=== PATIENT | female | born 1945 | race Caucasian/White ===

== ENCOUNTER 2019-06-09 07:13 | Emergency (ER) | payer OTHER ==
[2019-06-09 07:30] VITALS: BMI 27.3
--- NOTE | 2019-06-09 07:47 | PDOC ---
History of Present Illness - General Chief Complaint: Injury Stated Complaint: FALL Time Seen by Provider: 06/09/19 07:26 History Source: Family Exam Limitations: Dementia - History of Present Illness Initial Comments: 06/09/19 10:17 73F PMH Alzheimers and hypothyroidism brought in after a witnessed trip and fall w/ head strike w/o LOC. Not on AC. Pt got out of bed w/ assistance of (currently at bedside) and lost her footing while she was turning. Fell from standing, landed on buttock then struck head against dresser. Ambulated after incident. Family states pt is at baseline mental status. Pt denies pain. There was no recent illness. Pt is unreliable and poor historian 2/2 dementia. Sulfa abx allergy PCP on file Past History - Past Medical History Allergies/Adverse Reactions: Allergies Allergy/AdvReac Type Severity Reaction Status Date / Time Sulfa (Sulfonamide Allergy Verified 06/09/19 07:30 Antibiotics) Home Medications: Ambulatory Orders NK [No Known Home Medication] 11/06/14 COPD: No Dementia: Yes (alz.) Thyroid Disease: Yes - Psycho Social/Smoking Cessation Hx Smoking History: Never smoked Have you smoked in the past 12 months: No Information on smoking cessation initiated: No Hx Alcohol Use: No Drug/Substance Use Hx: No Substance Use Type: None Review of Systems - Review of Systems Able to Perform ROS?: No Comments:: 06/09/19 10:17 Unable to reliably obtain ROS 2/2 dementia *Physical Exam - Vital Signs Last Vital Signs Temp Pulse Resp BP Pulse Ox 91 H 19 175/130 H 100 06/09/19 07:28 06/09/19 07:28 06/09/19 07:28 06/09/19 07:28 - Physical Exam 06/09/19 10:17 GEN: NAD, Awake and alert, dementia HEENT: Hematoma to the right occipital aspect of the scalp. No active bleeding. No raccoon eyes or daniel sign. Pt minimally cooperative w/ CN exam. EOMI, PERRLA. No facial asymmetry. Moist mucous membranes. Normal voice. Supple neck w / FROM; no midline TTP. CV: S1/S2, RRR, no m/r/g LUNG: CTAB, no wheezes, crackles, rales, rhonchi. GI: soft, ndnt, +BS, no guarding, no rebound. No masses. EXTREMITIES: No LE edema. No obvious deformities of all extremities. SKIN: warm, dry, normal turgor. No ecchymoses on exam. PSYCH: normal mood and affect, dementia, pleasant NEURO: Moving all extremities well. FROM UE and LE b/l. Neurologic exam limited 2/2 pt dementia. Ambulates w/ assistance (baseline) BACK: No obvious deformities, no step offs, no midline TTP. There is no pelvic instability. No signs of trauma. Procedures - Laceration/Wound Repair Right Posterior Head Wound Length: to 2.5 cm Wound Explored: no foreign body present Wound's Depth, Shape: superficial Irrigated w/ Saline: Yes Betadine Prep: No Anesthesia: 1% Lidocaine w/ Epi Wound Debrided: minimal Wound Repaired With: [place] (5 ellyn) Layer Closure: No Sterile Dressing Applied: No Splint Applied: No Progress: 06/09/19 09:58 Wound area was washed revealing 1 - 1.5cm linear laceration of the right occipital scalp w/o active bleeding. 1.5cc lidocaine (1% w/ epi) was used for local anesthesia 5 ellyn were placed with good approximation and hemostasis. No active bleeding. the patient tolerated the patient well. Medical Decision Making - Medical Decision Making 06/09/19 07:52 73F not on AC s/p witnessed trip and fall w/ head strike w/o LOC. Severe dementia at baseline but family at bedside states at baseline. Hematoma of right occipital scalp. No midline TTP. - CT head and c-spine - Boostrix - Wash out affected area, see if there is lac repair? 06/09/19 10:00 CT head and neck neg laceration repaired w/ 5 ellyn Pt dc home w/ pcp f/u and staple care instructions Discharge - Discharge Information Problems reviewed: Yes Clinical Impression/Diagnosis: Laceration of head Qualifiers: Encounter type: initial encounter Location of open wound of head: scalp Foreign body presence: without foreign body Qualified Code(s): S01.01XA - Laceration without foreign body of scalp, initial encounter Condition: Stable Disposition: HOME - Admission No - Follow up/Referral Referrals: Salima Barajas MD [Primary Care Provider] - - Patient Discharge Instructions Patient Printed Discharge Instructions: DI for Laceration Repair -- Ellyn, DI for Closed Head Injury Additional Instructions: Follow up with your primary care doctor in the next 10-14 days. Five ellyn were placed, these can be removed in 10 days either at your primary care office or the Emergency Department. Keep the area dry for 24-48 hours. After that period you can wash the area with water and soap but AVOID scrubbing. Slowly resume normal, non-strenuous activity as tolerated. You can take tylenol as directed by the label for pain. A copy of your imaging reports was provided to you. You received a tetanus booster shot. Immediately return to the Emergency Department if you experience any of the following: - acute change in baseline behavior or personality - development of fevers / chills - anything that concerns you - Post Discharge Activity
[2019-06-09] MEDS ORDERED: DIPHTH,PERTUSS(ACELL),TET 0.5 ML DISP.SYRIN IM ONE ×2 (07:57→08:02)
[2019-06-09] MEDS ORDERED: LIDOCAINE 1%/EPI 1:100000 (20 ML MULTI DOSE VIAL) INF ONE (09:04)
[2019-06-09] MEDS ORDERED: LIDOCAINE 1%/EPI 1:100000 (20 ML MULTI DOSE VIAL) ONE (09:12)
[2019-06-09 09:58] VITALS: BP 116/71; PULSE 85
--- NOTE | 2019-06-09 10:04 | PDOC ---
Documentation entered by Jyoti Garcia SCRIBE, acting as scribe for Lincoln Reina MD. Lincoln Reina MD: This documentation has been prepared by the hugoibe, Jyoti Garcia SCRIBE, under my direction and personally reviewed by me in its entirety. I confirm that the documentation accurately reflects all work, treatment, procedures, and medical decision making performed by me. Attending Attestation - Resident Resident Name: PrestonRon - ED Attending Attestation I have performed the following: I have examined & evaluated the patient, The case was reviewed & discussed with the resident, I agree w/resident's findings & plan, Exceptions are as noted - HPI HPI: 06/09/19 08:09 The patient is a 73-year-old female with a past medical history significant for Alzheimers (requires 24 hour care, oriented x 0 at baseline) and hypothyroidism who presents to the emergency department accompanied by her s/p a witnessed fall. Patient's witnessed the fall, he was helping the patient ambulate out of the bed when she lost balance while turning. The patients states their legs got twisted and he was unable to stop her from hitting the ground. The patient fell onto her buttocks, then fell backward, hitting her head on the dresser, then the floor. The patient typically is helped out of bed by one of her HAND SCRAPER's but she is off today for the holiday. Denies LOC, nausea, or vomiting. The patient was able to ambulate after the fall. Denies AC use. Allergies: Sulfa Social history: No reported use of tobacco, alcohol or recreational drugs. PCP: Dr. Lilli Barajas. - Physicial Exam PE: 06/09/19 09:49 GENERAL: Pt is alert, not oriented x3. Pt keeps repeating is Wiley ok in no acute distress. Pt's and son Wiley at bedside. HEAD: +1cm vertical linear laceration to the right posterior head, hemostatic with 5 ellyn. EYES: PERRLA, EOMI, sclera anicteric, conjunctiva clear ENT: Auricles normal inspection, hearing grossly normal, nares patent, oropharynx clear without exudates. Moist mucosa NECK: Normal ROM, supple, no lymphadenopathy, JVD, or masses LUNGS: Breath sounds equal, clear to auscultation bilaterally. No wheezes, and no crackles HEART: Regular rate and rhythm, normal S1 and S2, no murmurs, rubs or gallops ABDOMEN: Soft, nontender, normoactive bowel sounds. No guarding, no rebound. No masses EXTREMITIES: Normal range of motion, no edema. No clubbing or cyanosis. No cords , erythema, or tenderness. 2+ peripheral pulses. WWP. BACK: No midline spinal tenderness in cervical/thoracic/lumbar region NEUROLOGICAL: Normal speech, cranial nerves intact, equal strength b/l, able to gait in ED with minimal assistance. SKIN: Warm, Dry, normal turgor, no rashes or lesions noted. - Medical Decision Making 06/09/19 10:00 73-year-old female presents emergency department for evaluation after a mechanical fall while getting out of bed. Patient with linear laceration to posterior right scalp which has been repaired with [address] head and cervical spine negative for acute injury. Initial labs with elevated blood pressure, however on repeat without intervention, blood pressure has normalized. Remaining vitals unremarkable. Patient with no other evidence of trauma on exam. She is able to ambulate in the ED with her family. She is clinically stable for discharge home. I discussed the physical exam findings, ancillary test results and final diagnoses with the patient. I answered all of the patient's questions. The patient was satisfied with the care received and felt comfortable with the discharge plan and treatment plan. The patient will call their primary care physician within 24 hours to arrange follow-up and will return to the Emergency Department with any new, persistent or worsening symptoms.
== END 2019-06-09 09:59 | disposition home or self-care (01) ==
LOC: JER 07:13
PROC: 3E0234Z Introduction of Serum, Toxoid and Vaccine into Muscle, Percutaneous Approach (ICD-10-PCS; principal; 2019-06-09)
PROC: 0HQ0XZZ Repair Scalp Skin, External Approach (ICD-10-PCS; 2019-06-09)
DX: S01.01XA Laceration without foreign body of scalp, initial encounter (principal); W01.190A Fall on same level from slipping, tripping and stumbling with subsequent striking against furniture, initial encounter; Y93.89 Activity, other specified; Y92.013 Bedroom of single-family (private) house as the place of occurrence of the external cause; Y99.8 Other external cause status; E03.9 Hypothyroidism, unspecified; G30.9 Alzheimer's disease, unspecified; F02.80 Dementia in other diseases classified elsewhere, unspecified severity, without behavioral disturbance, psychotic disturbance, mood disturbance, and anxiety; Z88.2 Allergy status to sulfonamides
CPT/HCPCS: 70450-TC; 72125-TC; 90715; 99281-25

== ENCOUNTER 2022-05-12 15:59 | Inpatient (IN) | payer OTHER ==
[2022-05-12 16:05] VITALS: BMI 26.6
[2022-05-12 17:54] LABS: VENOUS BASE EXCESS -1.3 mmol/L (-2-2); VENOUS O2 SATURATION 22.1 % (70-80); VENOUS PCO2 56.4 mmHg (38-52); VENOUS PH 7.288 (7.310-7.410)
[2022-05-12] MEDS ORDERED: SODIUM CHLORIDE 0.9% 500 ML INFUS.BAG IV ONE (17:59)
[2022-05-12] MEDS ORDERED: ACETAMINOPHEN 1000 MG/100 ML BAG IVPB ONE (17:59)
[2022-05-12] MEDS ORDERED: CEFTRIAXONE 1,000 MG in DEXTROSE 5%-WATER - 50 ML IVPB ONE (18:00)
[2022-05-12] MEDS ORDERED: AZITHROMYCIN IVPB 500 MG in DEXTROSE 5%-WATER - 250 ML IVPB ONE (18:00)
[2022-05-12 18:08] LABS: LACTIC ACID 2.2 mmol/L (0.4-2.0)
[2022-05-12] MEDS ORDERED: ACETAMINOPHEN INJECTION 100 ML IVPB ONE (18:09)
[2022-05-12] MEDS ORDERED: CEFTRIAXONE 1 GM/50 ML BAG ONE (18:10)
[2022-05-12 18:12] LABS: BASO % 0.2 % (0-2.0); HEMOGLOBIN 14.6 GM/dL (10.7-15.3); LYMPH % 8.7 % (8-40); MCH 30.4 pg (25.7-33.7); MCHC 32.5 g/dl (32.0-36.0); MEAN CELL VOLUME 93.5 fl (80-96); MEAN PLT VOLUME 9.6 fl (7.5-11.1); MONO % 7.1 % (3.8-10.2); PLATELET COUNT 202 10^3/uL (134-434); RBC 4.81 M/mm3 (3.60-5.2); RDW 13.8 % (11.6-15.6); WHITE BLOOD COUNT 10.7 K/mm3 (4.0-10.0)
[2022-05-12 18:14] LABS: EPI CELLS 1 /uL (0-25.1); HYALINE CASTS 1 /uL (0-3.1); PH,URINE 5.5 (5.0-8.0); URINE APPEARANCE CLOUDY; URINE BACTERIA >9,000 /uL (0-1359); URINE BILIRUBIN NEGATIVE (NEGATIVE); URINE COLOR YELLOW; URINE GLUCOSE (UA) NEGATIVE (NEGATIVE); URINE KETONE NEGATIVE (NEGATIVE); URINE LEUK ESTERASE 2+ (NEGATIVE); URINE NITRITE POSITIVE (NEGATIVE); URINE PROTEIN 1+ (NEGATIVE); URINE RBC 37 /uL (0-23.9); URINE UROBILINOGEN 0.2 mg/dL (0.2-1.0); URINE WBC 932 /uL (0-25.8)
[2022-05-12 18:33] LABS: INR 1.09 (0.83-1.09); PROTHROMBIN TIME (PATIENT) 12.5 SEC (9.7-13.0)
[2022-05-12 18:34] LABS: ACTIVATED PTT 28.5 SECONDS (25.2-36.5); ALBUMIN 3.4 g/dl (3.4-5.0); BLOOD UREA NITROGEN 13.6 mg/dL (7-18); CALCIUM 8.8 mg/dL (8.5-10.1)
[2022-05-12] MEDS ORDERED: AZITHROMYCIN IVPB 500 MG/250 ML BAG IVPB ONE (18:34)
[2022-05-12 18:37] LABS: CREATININE 0.7 mg/dL (0.55-1.3)
[2022-05-12 18:39] LABS: BILIRUBIN,TOTAL 0.4 mg/dL (0.2-1); TOT PROT 7.1 g/dl (6.4-8.2)
[2022-05-12 18:42] LABS: N-TERMINAL BNP 281.2 pg/ml (5-450)
[2022-05-12] MEDS ORDERED: SODIUM CHLORIDE 1,000 ML IV SCH (20:30)
[2022-05-12] MEDS ORDERED: ACETAMINOPHEN 500 MG TABLET (FP) PO PRN (20:30)
[2022-05-13] MEDS ORDERED: ACETAMINOPHEN 1000 MG/100 ML BAG IVPB ONE (07:38)
[2022-05-13] MEDS ORDERED: ACETAMINOPHEN INJECTION 100 ML IVPB ONE (07:39)
[2022-05-13 09:24] LABS: BASO % 0.3 % (0-2.0); HEMATOCRIT 38.5 % (32.4-45.2); HEMOGLOBIN 12.7 GM/dL (10.7-15.3); LYMPH % 14.2 % (8-40); MCH 30.3 pg (25.7-33.7); MEAN CELL VOLUME 91.7 fl (80-96); MEAN PLT VOLUME 9.1 fl (7.5-11.1); NEUT % 77.5 % (42.8-82.8); PLATELET COUNT 186 10^3/uL (134-434); RDW 13.3 % (11.6-15.6); WHITE BLOOD COUNT 7.2 K/mm3 (4.0-10.0)
[2022-05-13] MEDS: DONEPEZIL HCL 10 MG TABLET (FP) PO SCH (10:00)
[2022-05-13] MEDS: LEVOTHYROXINE NA 25 MCG TABLET (FP) PO SCH (10:00)
[2022-05-13] MEDS: MEMANTINE HCL 10 MG TABLET (FP) PO SCH ×2 (10:00→21:42)
[2022-05-13] MEDS: DULoxetine HCL 30 MG CAPSULE.DR PO SCH (10:00)
[2022-05-13] MEDS ORDERED: AZITHROMYCIN IVPB 500 MG/250 ML BAG IVPB SCH (10:00)
[2022-05-13 10:01] LABS: CALCIUM 8.3 mg/dL (8.5-10.1)
[2022-05-13 10:04] LABS: CREATININE 0.5 mg/dL (0.55-1.3)
[2022-05-13 10:05] LABS: BILIRUBIN,TOTAL 0.3 mg/dL (0.2-1); TOT PROT 5.3 g/dl (6.4-8.2)
[2022-05-13] MEDS ORDERED: ALBUTEROL SO4 0.083% IH SOL 2.5 MG/3 ML VIAL.NEB. NEB ONE ×2 (10:35→17:23)
[2022-05-13] MEDS ORDERED: CEFTRIAXONE 1 GM/50 ML BAG ONE (10:35)
[2022-05-13] MEDS: CEFTRIAXONE 1 GM in DEXTROSE 5%-WATER - 50 ML IVPB SCH (10:50)
[2022-05-13] MEDS: ALBUTEROL SO4 0.083% IH SOL 2.5 MG/3 ML VIAL.NEB. NEB SCH ×3 (10:50→21:35)
[2022-05-13 11:15] LABS: ALBUMIN 2.6 g/dl (3.4-5.0)
[2022-05-13] MEDS: D5-1/2NS+20 MEQ KCL - 20 MEQ/1,000 ML INFUS.BAG IV SCH (18:59)
[2022-05-14 00:12] VITALS: RESP 20
[2022-05-14] MEDS: ALBUTEROL SO4 0.083% IH SOL 2.5 MG/3 ML VIAL.NEB. NEB SCH ×4 (04:57→16:31)
[2022-05-14] MEDS ORDERED: CEFTRIAXONE 1 GM in DEXTROSE 5%-WATER - 50 ML IVPB SCH (10:00)
[2022-05-14] MEDS: DONEPEZIL HCL 10 MG TABLET (FP) PO SCH (10:24)
[2022-05-14] MEDS: LEVOTHYROXINE NA 25 MCG TABLET (FP) PO SCH (10:24)
[2022-05-14] MEDS: DULoxetine HCL 30 MG CAPSULE.DR PO SCH (10:25)
[2022-05-14] MEDS: MEMANTINE HCL 10 MG TABLET (FP) PO SCH (10:25)
[2022-05-14] MEDS: CEFTRIAXONE 1 GM in DEXTROSE 5%-WATER - 50 ML IVPB SCH (10:26)
[2022-05-14] MEDS: D5-1/2NS+20 MEQ KCL - 20 MEQ/1,000 ML INFUS.BAG IV SCH (10:35)
[2022-05-14 10:41] LABS: BASO % 0.5 % (0-2.0); EOS % 0.1 % (0-4.5); HEMOGLOBIN 13.4 GM/dL (10.7-15.3); LYMPH % 23.4 % (8-40); MCHC 32.6 g/dl (32.0-36.0); MEAN CELL VOLUME 92.1 fl (80-96); MEAN PLT VOLUME 9.3 fl (7.5-11.1); MONO % 7.4 % (3.8-10.2); NEUT % 68.6 % (42.8-82.8); PLATELET COUNT 187 10^3/uL (134-434); RBC 4.45 M/mm3 (3.60-5.2); RDW 13.4 % (11.6-15.6); WHITE BLOOD COUNT 5.9 K/mm3 (4.0-10.0)
[2022-05-14 11:10] LABS: CALCIUM 8.2 mg/dL (8.5-10.1)
[2022-05-14 11:11] LABS: ALBUMIN 2.5 g/dl (3.4-5.0); BLOOD UREA NITROGEN 6.9 mg/dL (7-18)
[2022-05-14 11:15] LABS: BILIRUBIN,TOTAL 0.2 mg/dL (0.2-1); CREATININE 0.6 mg/dL (0.55-1.3); TOT PROT 5.4 g/dl (6.4-8.2)
[2022-05-14 15:01] VITALS: BP 110/54; PULSE 90; TEMP 98.6
== END 2022-05-14 19:11 | disposition home or self-care (01) | DRG 194 ==
LOC: JER 15:59 → JERBED 20:26 → J6S 05-13 18:25
PROVIDERS: ADMIT Internal Medicine; ATTEND Internal Medicine
DX: J10.00 Influenza due to other identified influenza virus with unspecified type of pneumonia (principal); N39.0 Urinary tract infection, site not specified; B34.9 Viral infection, unspecified; G30.9 Alzheimer's disease, unspecified; F02.80 Dementia in other diseases classified elsewhere, unspecified severity, without behavioral disturbance, psychotic disturbance, mood disturbance, and anxiety; E03.9 Hypothyroidism, unspecified; J45.909 Unspecified asthma, uncomplicated; E78.5 Hyperlipidemia, unspecified; R41.82 Altered mental status, unspecified
CPT/HCPCS: 0241U-QW; 36415; 71045-TC-FY; 80053; 81003; 82550; 82553; 82803; 83605; 83880; 84484; 85025; 85610; 85730; 86850; 86900; 86901; 87040; 87086; 87186; 93005; 93010; 94640; 99285-25

== ENCOUNTER 2024-04-11 15:06 | Inpatient (IN) | payer OTHER ==
[2024-04-11] MEDS ORDERED: AZITHROMYCIN IVPB 500 MG/250 ML BAG IVPB ONE (16:28)
[2024-04-11] MEDS ORDERED: PIPERACILLIN/TAZOB 4.5 GM 4.5 GM/100 ML BAG IVPB ONE (16:28)
[2024-04-11] MEDS ORDERED: VANCOMYCIN 1 GRAM (PRE-DOCKED) 1,000 MG/250 ML BAG IVPB ONE (16:28)
[2024-04-11 16:34] LABS: VENOUS BASE EXCESS -0.1 mmol/L (-2-2); VENOUS O2 SATURATION 89.6 % (70-80); VENOUS PCO2 34.9 mmHg (38-52); VENOUS PH 7.444 (7.310-7.410)
[2024-04-11 16:43] LABS: BASO % 0.3 % (0-2.0); EOS % 0.1 % (0-4.5); HEMATOCRIT 39.5 % (32.4-45.2); LYMPH % 5.4 % (8-40); MCH 30.6 pg (25.7-33.7); MCHC 32.9 g/dl (32.0-36.0); MEAN PLT VOLUME 9.1 fl (7.5-11.1); MONO % 6.4 % (3.8-10.2); NEUT % 87.8 % (42.8-82.8); PLATELET COUNT 317 10^3/uL (134-434); RBC 4.25 M/mm3 (3.60-5.2); RDW 13.4 % (11.6-15.6); WHITE BLOOD COUNT 19.6 K/mm3 (4.0-10.0)
[2024-04-11 16:47] LABS: POTASSIUM 4.5 mmol/L (3.5-5.1)
[2024-04-11 16:50] LABS: ALBUMIN 2.5 g/dl (3.4-5.0)
[2024-04-11 16:51] LABS: INR 1.15 (0.83-1.09); PROTHROMBIN TIME (PATIENT) 13.2 SEC (9.7-13.0)
[2024-04-11 16:53] LABS: CREATININE 0.5 mg/dL (0.55-1.3)
[2024-04-11 16:53] LABS: ACTIVATED PTT 30.9 SECONDS (25.2-36.5)
[2024-04-11 16:54] LABS: BILIRUBIN,TOTAL 0.5 mg/dL (0.2-1); TOT PROT 6.6 g/dl (6.4-8.2)
[2024-04-11 17:17] LABS: EPI CELLS 6 /uL (0-25.1); HYALINE CASTS 3 /uL (0-3.1); PH,URINE 5.5 (5.0-8.0); URINE APPEARANCE TURBID; URINE BACTERIA >9,000 /uL (0-1359); URINE BILIRUBIN 1+ (NEGATIVE); URINE COLOR DK YELLOW; URINE GLUCOSE (UA) NEGATIVE (NEGATIVE); URINE KETONE TRACE (NEGATIVE); URINE LEUK ESTERASE 2+ (NEGATIVE); URINE NITRITE POSITIVE (NEGATIVE); URINE PROTEIN 2+ (NEGATIVE); URINE RBC 148 /uL (0-23.9); URINE WBC 1945 /uL (0-25.8)
[2024-04-11] MEDS: PIPERACILLIN/TAZOB 4.5 GM 4.5 GM in DEXTROSE 5%-WATER - 100 ML IVPB ONE (17:22)
[2024-04-11] MEDS ORDERED: ACETAMINOPHEN INJECTION 100 ML ONE (17:24)
[2024-04-11] MEDS: ACETAMINOPHEN 1000 MG/100 ML BAG IVPB ONE (17:27)
[2024-04-11] MEDS: AZITHROMYCIN IVPB 500 MG in DEXTROSE 5%-WATER - 250 ML IVPB ONE (17:38)
[2024-04-11] MEDS: VANCOMYCIN 1,000 MG in DEXTROSE 5%-WATER - 250 ML IVPB ONE (18:45)
[2024-04-11] MEDS ORDERED: ACETAMINOPHEN 1000 MG/100 ML BAG IVPB PRN (20:28)
[2024-04-11] MEDS: SODIUM CHLORIDE 2,000 ML IV STA (23:24)
[2024-04-12] MEDS: ALBUTEROL SO4 0.083% IH SOL 2.5 MG/3 ML VIAL.NEB. NEB SCH ×2 (03:25→11:55)
[2024-04-12] MEDS: LEVOTHYROXINE NA 25 MCG TABLET (FP) PO SCH (06:51)
[2024-04-12] MEDS: ENOXAPARIN NA (PORCINE) 40 MG/0.4 ML DISP.SYRIN SQ SCH (09:48)
[2024-04-12] MEDS: SODIUM CHLORIDE 1,000 ML IV STA (09:48)
[2024-04-12] MEDS: DULoxetine HCL 30 MG CAPSULE.DR PO SCH (09:48)
[2024-04-12] MEDS: AZITHROMYCIN IVPB 250 MG in DEXTROSE 5%-WATER - 250 ML IVPB SCH (09:48)
[2024-04-12] MEDS: CEFTRIAXONE 1 G/50 ML PREMIX 50 ML IVPB SCH (10:14)
[2024-04-12] MEDS: DEXTROSE 5%-LACTATED RINGERS 1,000 ML IV SCH (10:15)
[2024-04-12] MEDS: CEFTRIAXONE 1 GM in DEXTROSE 5%-WATER - 50 ML IVPB SCH (10:16)
[2024-04-12 13:05] LABS: HEMATOCRIT 33.6 % (32.4-45.2); MCH 30.1 pg (25.7-33.7); MCHC 32.9 g/dl (32.0-36.0); MEAN CELL VOLUME 91.7 fl (80-96); MEAN PLT VOLUME 8.3 fl (7.5-11.1); PLATELET COUNT 288 10^3/uL (134-434); RBC 3.66 M/mm3 (3.60-5.2); RDW 13.4 % (11.6-15.6); WHITE BLOOD COUNT 14.5 K/mm3 (4.0-10.0)
[2024-04-12 13:26] LABS: POTASSIUM 3.5 mmol/L (3.5-5.1)
[2024-04-12 13:28] LABS: CALCIUM 8.3 mg/dL (8.5-10.1)
[2024-04-12 13:29] LABS: BLOOD UREA NITROGEN 4.6 mg/dL (7-18); MAGNESIUM 1.9 mg/dL (1.8-2.4)
[2024-04-12 13:32] LABS: CREATININE 0.4 mg/dL (0.55-1.3); PHOSPHOROUS 2.3 mg/dL (2.5-4.9)
[2024-04-12 13:33] LABS: BILIRUBIN,TOTAL 0.3 mg/dL (0.2-1); TOT PROT 5.3 g/dl (6.4-8.2)
[2024-04-12] MEDS: POTASSIUM PHOSPHATE 15 MM in SODIUM CHLORIDE 250 ML IVPB ONE (20:00)
[2024-04-13 09:39] LABS: HEMATOCRIT 37.2 % (32.4-45.2); HEMOGLOBIN 12.6 GM/dL (10.7-15.3); MCH 30.9 pg (25.7-33.7); MCHC 33.9 g/dl (32.0-36.0); MEAN CELL VOLUME 91.3 fl (80-96); MEAN PLT VOLUME 8.2 fl (7.5-11.1); PLATELET COUNT 343 10^3/uL (134-434); RBC 4.08 M/mm3 (3.60-5.2); RDW 13.7 % (11.6-15.6); WHITE BLOOD COUNT 11.3 K/mm3 (4.0-10.0)
[2024-04-13] MEDS ORDERED: CEFTRIAXONE 1 GM in DEXTROSE 5%-WATER - 50 ML IVPB SCH (10:00)
[2024-04-13 11:03] LABS: CALCIUM 8.7 mg/dL (8.5-10.1)
[2024-04-13 11:04] LABS: BLOOD UREA NITROGEN 4.9 mg/dL (7-18); MAGNESIUM 2.1 mg/dL (1.8-2.4)
[2024-04-13 11:07] LABS: CREATININE 0.4 mg/dL (0.55-1.3); PHOSPHOROUS 3.3 mg/dL (2.5-4.9)
[2024-04-13] MEDS: predniSONE 5 MG TABLET (UD) PO ONE (16:53)
[2024-04-14 09:50] LABS: HEMATOCRIT 39.4 % (32.4-45.2); HEMOGLOBIN 13.3 GM/dL (10.7-15.3); MCH 31.1 pg (25.7-33.7); MCHC 33.7 g/dl (32.0-36.0); MEAN CELL VOLUME 92.1 fl (80-96); MEAN PLT VOLUME 8.6 fl (7.5-11.1); PLATELET COUNT 389 10^3/uL (134-434); RBC 4.28 M/mm3 (3.60-5.2); RDW 13.8 % (11.6-15.6); WHITE BLOOD COUNT 10.7 K/mm3 (4.0-10.0)
[2024-04-14 10:05] LABS: POTASSIUM 4.3 mmol/L (3.5-5.1)
[2024-04-14 10:08] LABS: BLOOD UREA NITROGEN 5.8 mg/dL (7-18); CALCIUM 9.3 mg/dL (8.5-10.1)
[2024-04-14 10:09] LABS: MAGNESIUM 2.4 mg/dL (1.8-2.4)
[2024-04-14 10:12] LABS: CREATININE 0.5 mg/dL (0.55-1.3); PHOSPHOROUS 3.1 mg/dL (2.5-4.9)
[2024-04-14 13:28] LABS: ANISOCYTOSIS 1+; MACROCYTOSIS 1+
[2024-04-14] MEDS: PATIENT'S OWN MEDICATION (NON-FORMULARY) (Memantine Hcl/Donepezil Hcl [Namzaric 28 Mg-10 M PO SCH (18:22)
[2024-04-14] MEDS: diphenhydrAMINE HCL 25 MG CAPSULE (FP) PO ONE (18:36)
[2024-04-14] MEDS: FAMOTIDINE 20 MG/50 ML IVPB 20 MG/50 ML MG IVPB ONE (18:36)
[2024-04-14] MEDS ORDERED: DONEPEZIL HCL 10 MG TABLET (FP) PO SCH (22:00)
[2024-04-14] MEDS ORDERED: MEMANTINE HCL 10 MG TABLET (FP) PO SCH (22:00)
[2024-04-15 10:25] LABS: BASO % 1.1 % (0-2.0); HEMATOCRIT 38.3 % (32.4-45.2); HEMOGLOBIN 12.6 GM/dL (10.7-15.3); LYMPH % 20.7 % (8-40); MCH 30.5 pg (25.7-33.7); MCHC 32.8 g/dl (32.0-36.0); MEAN CELL VOLUME 93.1 fl (80-96); MEAN PLT VOLUME 8.2 fl (7.5-11.1); MONO % 9.3 % (3.8-10.2); NEUT % 64.9 % (42.8-82.8); PLATELET COUNT 415 10^3/uL (134-434); RBC 4.11 M/mm3 (3.60-5.2); RDW 13.3 % (11.6-15.6); WHITE BLOOD COUNT 10.1 K/mm3 (4.0-10.0)
[2024-04-15 10:31] LABS: POTASSIUM 4.3 mmol/L (3.5-5.1)
[2024-04-15 10:39] LABS: ALBUMIN 2.4 g/dl (3.4-5.0); BLOOD UREA NITROGEN 6.1 mg/dL (7-18)
[2024-04-15 10:40] LABS: MAGNESIUM 2.4 mg/dL (1.8-2.4)
[2024-04-15 10:42] LABS: CREATININE 0.5 mg/dL (0.55-1.3); PHOSPHOROUS 3.6 mg/dL (2.5-4.9)
[2024-04-15 10:43] LABS: BILIRUBIN,TOTAL 0.3 mg/dL (0.2-1); TOT PROT 6.1 g/dl (6.4-8.2)
[2024-04-15] MEDS: predniSONE 10 MG TABLET (UD) PO ONE (15:11)
[2024-04-16 11:00] LABS: BASO % 0.9 % (0-2.0); EOS % 2.9 % (0-4.5); HEMATOCRIT 42.8 % (32.4-45.2); LYMPH % 24.1 % (8-40); MCH 30.5 pg (25.7-33.7); MCHC 32.7 g/dl (32.0-36.0); MEAN CELL VOLUME 93.1 fl (80-96); MEAN PLT VOLUME 8.1 fl (7.5-11.1); MONO % 9.5 % (3.8-10.2); NEUT % 62.6 % (42.8-82.8); PLATELET COUNT 490 10^3/uL (134-434); RBC 4.59 M/mm3 (3.60-5.2); RDW 14.1 % (11.6-15.6); WHITE BLOOD COUNT 10.3 K/mm3 (4.0-10.0)
[2024-04-16 11:12] LABS: POTASSIUM 4.4 mmol/L (3.5-5.1)
[2024-04-16 11:15] LABS: ALBUMIN 2.7 g/dl (3.4-5.0); CALCIUM 9.7 mg/dL (8.5-10.1)
[2024-04-16 11:16] LABS: BLOOD UREA NITROGEN 11.9 mg/dL (7-18); MAGNESIUM 2.6 mg/dL (1.8-2.4)
[2024-04-16 11:19] LABS: CREATININE 0.6 mg/dL (0.55-1.3); PHOSPHOROUS 3.4 mg/dL (2.5-4.9)
[2024-04-16 11:20] LABS: BILIRUBIN,TOTAL 0.4 mg/dL (0.2-1)
[2024-04-16] MEDS: guaiFENesin 200 MG/10 ML 10 ML UNIT-DOSE CUPS PO PRN (14:43)
[2024-04-16] MEDS: DEXTROSE 50%-WATER 25 GM/50 ML DISP.SYRIN IVPUSH ONE (23:29)
[2024-04-17 10:44] LABS: BASO % 0.9 % (0-2.0); EOS % 3.3 % (0-4.5); HEMATOCRIT 43.6 % (32.4-45.2); HEMOGLOBIN 14.2 GM/dL (10.7-15.3); LYMPH % 20.7 % (8-40); MCH 30.4 pg (25.7-33.7); MCHC 32.5 g/dl (32.0-36.0); MEAN CELL VOLUME 93.6 fl (80-96); MONO % 6.8 % (3.8-10.2); NEUT % 68.3 % (42.8-82.8); PLATELET COUNT 496 10^3/uL (134-434); RBC 4.66 M/mm3 (3.60-5.2); WHITE BLOOD COUNT 9.4 K/mm3 (4.0-10.0)
[2024-04-17 11:05] LABS: POTASSIUM 4.5 mmol/L (3.5-5.1)
[2024-04-17 11:12] LABS: CALCIUM 9.7 mg/dL (8.5-10.1)
[2024-04-17 11:13] LABS: ALBUMIN 2.7 g/dl (3.4-5.0); MAGNESIUM 2.4 mg/dL (1.8-2.4)
[2024-04-17 11:14] LABS: BLOOD UREA NITROGEN 11.4 mg/dL (7-18)
[2024-04-17 11:16] LABS: CREATININE 0.5 mg/dL (0.55-1.3); PHOSPHOROUS 3.3 mg/dL (2.5-4.9)
[2024-04-17 11:20] LABS: BILIRUBIN,TOTAL 0.4 mg/dL (0.2-1); TOT PROT 6.9 g/dl (6.4-8.2)
[2024-04-17 18:21] VITALS: BMI 23.8
[2024-04-18 10:40] LABS: HEMATOCRIT 42.5 % (32.4-45.2); HEMOGLOBIN 14.2 GM/dL (10.7-15.3); MCH 31.1 pg (25.7-33.7); MCHC 33.3 g/dl (32.0-36.0); MEAN CELL VOLUME 93.4 fl (80-96); MEAN PLT VOLUME 8.2 fl (7.5-11.1); PLATELET COUNT 429 10^3/uL (134-434); RBC 4.55 M/mm3 (3.60-5.2); RDW 13.6 % (11.6-15.6); WHITE BLOOD COUNT 7.6 K/mm3 (4.0-10.0)
[2024-04-18 10:44] LABS: POTASSIUM 4.8 mmol/L (3.5-5.1)
[2024-04-18 10:51] LABS: CALCIUM 8.8 mg/dL (8.5-10.1)
[2024-04-18 10:52] LABS: ALBUMIN 2.6 g/dl (3.4-5.0); BLOOD UREA NITROGEN 11.7 mg/dL (7-18)
[2024-04-18 10:55] LABS: CREATININE 0.5 mg/dL (0.55-1.3)
[2024-04-18 10:56] LABS: BILIRUBIN,TOTAL 0.2 mg/dL (0.2-1); TOT PROT 6.5 g/dl (6.4-8.2)
[2024-04-18 21:01] VITALS: RESP 20
[2024-04-19 03:55] VITALS: TEMP 98.2
[2024-04-19 14:33] VITALS: BP 102/71; PULSE 74
== END 2024-04-19 16:00 | disposition home or self-care (01) | DRG 871 ==
LOC: JER 15:06 → JERBED 17:23 → J6S 22:19
PROVIDERS: ADMIT Student in an Organized Health Care Education/Training Program; ATTEND Internal Medicine
DX: A41.9 Sepsis, unspecified organism (principal); J69.0 Pneumonitis due to inhalation of food and vomit; J96.01 Acute respiratory failure with hypoxia; N39.0 Urinary tract infection, site not specified; J90 Pleural effusion, not elsewhere classified; E03.9 Hypothyroidism, unspecified; F03.90 Unspecified dementia, unspecified severity, without behavioral disturbance, psychotic disturbance, mood disturbance, and anxiety; R21 Rash and other nonspecific skin eruption; R13.10 Dysphagia, unspecified
CPT/HCPCS: 0241U-QW; 36415; 71045-TC-FY; 74230-TC-FY; 80048; 80053; 81003; 82803; 82962; 83605; 83735; 84100; 84484; 85025; 85027; 85610; 85730; 86850; 86900; 86901; 87040; 87070; 87086; 87186; 87205; 92611-GN; 93005; 93010; 93306-TC; 94640; 94660; 97116-GP; 97162-GP; 99291; E0372; J0131